=== PATIENT | male | born 2000 | race Caucasian/White ===

== ENCOUNTER 2023-07-04 13:10 | Inpatient (IN) ==
[2023-07-04] MEDS ORDERED: KETOROLAC TROMETHAMINE 15 MG/ML VIAL IV ONE (13:24)
--- NOTE | 2023-07-04 13:28 | ED Triage Note ---
Date of Service July 04, 2023 History of Present Illness This patient was briefly evaluated while in triage. An abbreviated physical exam was performed. This patient is a 23-year-old Male who presents to the ED for evaluation of chest/back pain. Patient states he was laying in bed this morning and developed a pain in his right mid back. He then started feeling a pinching pain in his chest with deep breath. He has little pain at rest. No recent long travel. Physical Exam VITALS: Vitals are noted on the nurse's note and reviewed by myself. GENERAL: This is a 23-year-old male, in no acute distress, well-developed well- nourished. HEART: Regular rate and rhythm without murmurs gallops or rubs. LUNGS: Clear to auscultation bilaterally without wheezes, rales or rhonchi. MUSCULOSKELETAL: No tenderness to palpation of the back. NEURO: Patient was alert and oriented to person place and time. Initial orders for labs and / or imaging were placed and patient was placed in the waiting area until a bed is available. Please see further documentation for the full ED course. MDM / Impression Impression Impression: Spontaneous pneumothorax
[2023-07-04 13:55] LABS: Basophils # (auto) 0.04 K/uL (0.00-0.20); Basophils % (auto) 0.7 %; Eosinophils # (auto) 0.11 K/uL (0.00-0.50); Eosinophils % (auto) 1.9 %; Hematocrit (blood only) 46.6 % (42.0-52.0); Hemoglobin 15.7 g/dl (14.0-18.0); Immature Granulocytes # (auto) 0.03 K/uL (0.01-0.20); Immature Granulocytes % (auto) 0.5 %; Lymphocytes # (auto) 1.85 K/uL (1.20-3.40); Lymphocytes % (auto) 31.7 %; Mean Corpuscular Hemoglobin 29.3 pg (25.0-34.0); Mean Corpuscular Hgb Conc 33.7 g/dL (32.0-36.0); Mean Corpuscular Volume 87.1 fL (80.0-100.0); Mean Platelet Volume 9.7 fL (9.4-12.4); Monocytes # (auto) 0.43 K/uL (0.11-0.59); Monocytes % (auto) 7.4 %; Neutrophils # (auto) 3.37 K/uL (1.40-6.50); Neutrophils % (auto) 57.8 %; Platelet Count 275 K/uL (130-400); RDW Coefficient of Variation 11.9 % (11.5-14.5); RDW Standard Deviation 37.8 fL (36.4-46.3); Red Blood Count 5.35 M/uL (4.70-6.10); White Blood Count 5.83 K/ul (4.8-10.8)
[2023-07-04 14:15] LABS: Alanine Aminotransferase 13 U/L (7-52); Albumin Globulin Ratio 1.5 (0.9-2); Albumin Level 4.7 gm/dl (3.4-5.0); Alkaline Phosphatase 66 U/L (34-104); Anion Gap 7 (3-11); Aspartate Aminotransferase 18 U/L (13-39); BUN Creatinine Ratio 13.2 (10-20); Bilirubin,Total 0.6 mg/dl (0.2-1.0); Blood Urea Nitrogen 14 mg/dl (6-23); Calcium 9.7 mg/dl (8.6-10.3); Carbon Dioxide 31 mmol/L (21-32); Chloride 103 mmol/L (98-107); Creatinine Clr Calc Pharmacy 123.5 ml/min; Est GFR (African American) 114.9 ml/min; Est GFR (Non-African American) 99.1 ml/min; Globulin 3.2 gm/dl (2.5-4.0); Glucose 94 mg/dl (70-99(Fasting)); Potassium 3.9 mmol/L (3.5-5.1); Sodium 141 mmol/L (136-145); Total Protein 7.9 gm/dl (6.0-8.3)
[2023-07-04 14:22] LABS: Troponin I High Sensitivity < 2.3 pg/ml (0-20)
--- NOTE | 2023-07-04 14:37 | XRay Report ---
XR chest 1V not portable HISTORY: Chest pain, nonspecific COMPARISON: Chest 06/30/2022. FINDINGS: [id number] right-sided pneumothorax demonstrating a maximal apical pleural gap of 4. 6 cm. No mediastinal shift. The heart is normal in size. No pleural effusions. No left-sided pneumoth orax. The lungs are clear. No acute fractures identified. IMPRESSION: Small to moderate right-sided pneumothorax. No mediastinal shift. ACT 112: Negative or not required by law. Electronically signed by: Singh Rubio M.D. 07/04/2023 2:35 PM
[2023-07-04] MEDS ORDERED: SODIUM CHLORIDE 0.9% 1,000 ML IV SCH (15:15)
[2023-07-04] MEDS ORDERED: OPTIRAY 320 100ml IV ONE (15:29)
--- NOTE | 2023-07-04 16:05 | CT Scan Report ---
CHEST CT WITH CONTRAST CT DOSE: 551.93 mGy.cm HISTORY: eval right-sided pneumothorax, ?nontrauma vs trauma TECHNIQUE: Multiaxial CT images of the chest were performed following the intravenous administration of contrast. A dose lowering technique was utilized adhering to the principles of ALARA. COMPARISON: Chest 07/04/2023. FINDINGS: There is again noted a small right pneumothorax. Small cluster right apical blebs medially with the largest on image 42 measuring 6 mm. This may account for the pneumothorax. Small patchy dens ities within the right lower lobe posteriorly favor dependent change/atelectasis. The left lung is cl ear. No mediastinal shift. The central airways are patent. No pneumomediastinum. No acute fractures i dentified. The thyroid gland enhances normally. Normal esophagus. No pericardial effusion. Trace righ t pleural effusion is suggested. No mediastinal or hilar lymphadenopathy. The heart is normal in size . Normal caliber thoracic aorta with no evidence for a dissection. The main pulmonary arteries are pa tent. Limited views of the upper abdomen demonstrate a normal liver, spleen, and adrenal glands. IMPRESSION: 1. Small right pneumothorax again noted. No mediastinal shift. 2. Small cluster of right apical blebs with the largest measuring 6 mm. This may account for the pneu mothorax. 3. Trace right pleural effusion. ACT 112: Negative or not required by law. Electronically signed by: Singh Rubio M.D. 07/04/2023 4:04 PM
[2023-07-04] MEDS ORDERED: XYLOCAINE 1%/SOD BICARB 20 ML VIAL INFIL ONE (16:49)
--- NOTE | 2023-07-04 17:14 | Electrocardiogram Report ---
Test Reason : Blood Pressure : / mmHG Vent. Rate : 064 BPM Atrial Rate : 064 BPM P-R Int : 126 ms QRS Dur : 092 ms QT Int : 378 ms P-R-T Axes : 065 076 071 degrees QTc Int : 389 ms Sinus rhythm with marked sinus arrhythmia Otherwise normal ECG When compared with ECG of 30-JUN-2022 05:06, No significant change was found Confirmed by Ildefonso Diaz ([id number]) on 07/04/2023 5:13:49 PM Referred By: Confirmed By:Donny Diaz
[2023-07-04] MEDS ORDERED: MoRPHine SULFATE 4 MG/ML 1 ML CARP\\VIAL ONE (17:18)
[2023-07-04] MEDS ORDERED: MoRPHine SULFATE 2 MG/ML CARP IV STA (17:19)
[2023-07-04] MEDS ORDERED: MoRPHine SULFATE 4 MG/ML 1 ML CARP\\VIAL IV STA (17:36)
[2023-07-04] MEDS ORDERED: ONDANSETRON INJ 2 MG/ML 2 ML VIAL IV STA (17:36)
--- NOTE | 2023-07-04 17:49 | Emergency Department Note ---
Impression & Plan Spontaneous pneumothorax, Vapes nicotine containing substance, Chest pain ED Provider Note NAME: JAYDEN JULIO AGE: 23 SEX: M ARRIVES VIA: Walk-In INFORMANT: Patient ED PROVIDER(S): Fernando Alvarez MD CHIEF COMPLAINT: Chest pain PLAN: Disposition: Admit MEDICAL DECISION MAKING: The patient is a pleasant 23-year-old gentleman, [employer] student who presents to the emergency department for evaluation of worsening right-sided chest pain and shortness of breath which became severe this morning but he acknowledges has been ongoing to the degree since Monday. The patient reports that he did have a festive weekend of drinking alcohol and admits that he did smoke marijuana and vapes regularly. He reports he is unaware of any episodes where he may have fallen or any reports of any falls or trauma provided to him by his friends but he acknowledges there is a bit of gap in time in terms of his memory due to his intoxication that day. He reports his symptoms were minimal on Monday and Monday during the day and progressed Monday evening and then more severe this morning. Otherwise denies any recent fevers, chills, cough, congestion, GI or symptoms. He denies any chronic medical conditions. Of note, the patient did arrive to emergency department during time of high volume, acuity and prolonged emergency department waiting times. Critical pathways initiated from triage. Chest x-ray performed in triage demonstrates moderate-sized right pneumothorax w ith 4.4 cm of separation apically per my personal review/interpretation. The patient was subsequently transferred to critical care bay for further assessment. On my evaluation the patient is well-appearing in no acute distress, afebrile with stable vital signs with heart rate in the 50-60s and with blood pressure normal and O2 saturation 98% on room air and greater. He has diminished breath sounds of the right upper lung link and lungs are otherwise clear. WBC, H/H and platelets within normal limits. Chemistry without metabolic acidosis. Electrolytes and LFTs without significant abnormality. High- sensitivity troponin is undetectable. Given the patient reported a gap in his memory from the weekend a CT of the chest was performed to exclude traumatic etiology given the patient was hemodynamically stable and doing well on room air. He was placed on high percent nonrebreather in the interim. CT scan redemonstrates pneumothorax with trace pleural effusion. Note is made of susp ected apical blebs. No rib fractures are seen. There appears to be approximate 2 cm of separation from the pleural wall though in the setting of the patient being supine and so do not suspect any significant difference. Case was discussed with ICU press washer, Dr. Babb. Appreciate consultatio n/recommendations. Agrees with placement of catheter given size of pneumothorax. Given anterior apical location may be effectively managed with a ThoraVent. I did have a thorough discussion with the patient and his mother regarding management of his pneumothorax upon the patient's arrival. Ultimately, the patient was in agreement with plan for catheter thoracostomy. ThoraVent catheter placed per procedure note. 50 cc of air removed initially and placed to waterseal. Subsequent repeat chest x-ray demonstrates interval improvement with 3.7cm of apical separation. Patient subsequently placed to low continuous suction while in the emergency department but can be transition to waterseal upon transfer to the floor. Case was discussed with Dr. Grijalva, [facility] hospitalist, who will evaluate the patient for admission. Triage Nursing notes reviewed and agree them. Prior/external medical records reviewed Vital Signs: reviewed Differential diagnosis: Pneumothorax, Reactive airway disease, pneumonia, pneumothorax, COPD, CHF, infections, cardiac ischemia, pulmonary embolism, musculoskeletal, gastrointestinal, as well as other pathologies. ER treatment provided: See below. Diagnostics interpreted by me: ECG: Sinus rhythm with marked sinus arrhythmia, 64 bpm, no ectopy, no overt ST elevation or depression, QTc 389, QRS 92. Similar to 06/2022 Cardiac Monitoring: An order for continuous cardiac monitoring was placed and demonstrated Sinus rhythm with marked sinus arrhythmia, 64 bpm, no ectopy. Laboratory studies: See below Imaging studies: See below Consultation(s): Dr. Babb, ICU press washer. HPI: The patient is a pleasant 23-year-old gentleman, [employer] student who presents to the emergency department for evaluation of worsening right-sided chest pain and shortness of breath which became severe this morning but he acknowledges has been ongoing to the degree since Monday. The patient reports that he did have a festive weekend of drinking alcohol and admits that he did smoke marijuana and vapes regularly. He reports he is unaware of any episodes where he may have fallen or any reports of any falls or trauma provided to him by his friends but he acknowledges there is a bit of gap in time in terms of his memory due to his intoxication that day. He reports his symptoms were minimal on Monday and Monday during the day and progressed Monday evening and then more severe this morning. Otherwise denies any recent fevers, chills, cough, congestion, GI or symptoms. He denies any chronic medical conditions. ROS: See above HPI for pertinent positives & negatives. A total of 10 systems reviewed and were otherwise negative. VITALS:See Below PHYSICAL EXAMINATION: GENERAL: Awake, alert, well-appearing, in no distress HENT: Normocephalic, atraumatic. Oropharynx unremarkable. EYES: Normal conjunctiva. Sclera non-icteric. NECK: Supple. No nuchal rigidity. FROM. No JVD. RESPIRATORY: Diminished breath sounds of the right upper lung link and lungs are otherwise clear. CARDIAC: Regular rate, normal rhythm. Extremities warm and well perfused. Pulses equal. ABDOMEN: Soft, non-distended. No tenderness to palpation. No rebound or guarding. No masses. RECTAL: Deferred. MUSCULOSKELETAL: Chest examination reveals no tenderness. The back is symmetrical on inspection without obvious abnormality. There is no CVA te nderness to palpation. No joint edema. LOWER EXTREMITIES: Calves are equal size bilaterally and non-tender. No edema. No discoloration. NEURO: Normal sensorium. No sensory or motor deficits noted. SKIN: No rash or jaundice noted. ED COURSE: Procedures: Tube thoracostomy (ThoraVent) Indication: Pneumothorax Catheter type: ThoraVent Location: Right mid-clavicular line, 2nd intercostal space. Medications, Imaging and lab results reviewed. Written consent was obtained after the risks and benefits were explained. At t his time, the risks of the procedure are less than the risks of NOT performing the procedure. The patient was placed in the seated position with slight left lateral decubitus orientation and the skin was prepped in the standard fashion with chlorhexidine and sterile drapes applied. The proper landmarks were identified with ultrasound, anesthetized with 1% lidocaine without epinephrine, and the needle was inserted through the skin in the standard fashion with contact on rib surface then over rib into intercostal space. The needle was carefully advanced and air return confirmed in syringe. The guidewire was placed uneventfully. Tract was dilated in standard fashion and pigtail catheter advance d with air return confirming appropriate position. It was sutured into position. Initially placed to low wall suction which the patient tolerated well. The patient tolerated the procedure well and there were no complications. Post procedure x-ray demonstrated lung reexpansion. Critical Care: I have personally spent greater than 35 minutes of critical care time in the direct management of this patient. This includes bedside care, interpretation of diagnostic studies, and testing, discussion with consultants, patient, and family members, and other required patient management activities. This 35 minutes is in excess of all separately billable procedures. Fernando Alvarez MD Past Med/Surg History Medical History (Updated 07/05/23 @ 00:35 by Fernando Alvarez MD) No chronic diseases present Splenic infarction 10/06 mononucleosis Surgical History No significant past surgical history Social History Smoking Status: Current some day smoker Tobacco Type: Cigarettes and E-cigarettes / Vaping Cigarettes Per Day: 2; Do You Dip or Chew Tobacco: No; Tobacco Cessation Education Requested by Patient: No Hx Alcohol Use: Yes Alcohol type: beer Hx Substance Use: Yes Last Used Substance: Days (ago) Last Used Substance Other:: 07/02 Preferred Language: Tajik Communication Ability: Effective Operations Lieutenant Required: No Beliefs That Will Affect Care: None Current Living Situation: Other Current Living Situation Comment: Off campus housing with other college students Other Information That Helps Us Care for You: No Feels Safe at Home: Yes Safety Concerns: Feels Safe At This Time Assistive Devices: None Allergies Allergies Allergy/AdvReac Type Severity Reaction Status Date / Time No Known Allergies Allergy Verified 07/04/23 15:52 Home Meds Home Medications Medication Instructions Recorded Confirmed acetaminophen 500 mg tablet 1,000 mg PO DIRECTED PRN 07/04/23 07/04/23 (Tylenol Extra Strength) PAIN/FEVER Results & Data (ED) Vital Signs Vital Signs - 24 hr 07/04/23 13:23 07/04/23 14:40 07/04/23 15:36 Temperature 36.8 C Temperature Source Skin Pulse Rate 86 Pulse Rate [Apical] 59 L Pulse Rate from SpO2 Sensor Pulse Rhythm [Apical] Respiratory Rate 18 16 Respiratory Depth Blood Pressure 124/76 Blood Pressure [Left Arm] 102/52 L Blood Pressure Mean 92 Blood Pressure Mean [Left Arm] 68 Blood Pressure Position [Left Arm] Lying Pulse Oximetry 97 100 99 Oxygen Delivery Method Room Air Room Air Room Air Oxygen Flow Rate Sepsis Recent Fever Within 48 Hours No Sepsis New/Unexplained Change in Mental Status No Sepsis Action Taken by Nursing No Action Required 07/04/23 16:04 07/04/23 16:05 07/04/23 16:30 Temperature Temperature Source Pulse Rate Pulse Rate [Apical] 48 L 46 L Pulse Rate from SpO2 Sensor Pulse Rhythm [Apical] Regular Respiratory Rate 16 15 Respiratory Depth Normal Blood Pressure Blood Pressure [Left Arm] 115/64 117/64 Blood Pressure Mean Blood Pressure Mean [Left Arm] 81 81 Blood Pressure Position [Left Arm] Lying Pulse Oximetry 100 100 99 Oxygen Delivery Method Non-rebreather Non-rebreather Non-rebreather Oxygen Flow Rate 15 15 15 Sepsis Recent Fever Within 48 Hours Sepsis New/Unexplained Change in Mental Status Sepsis Action Taken by Nursing 07/04/23 17:00 07/04/23 17:26 07/04/23 18:01 Temperature Temperature Source Pulse Rate 51 L 46 L Pulse Rate [Apical] 49 L Pulse Rate from SpO2 Sensor 45 L Pulse Rhythm [Apical] Regular Respiratory Rate 20 16 Respiratory Depth Normal Blood Pressure 128/60 Blood Pressure [Left Arm] 116/67 Blood Pressure Mean 82 Blood Pressure Mean [Left Arm] 83 Blood Pressure Position [Left Arm] Lying Pulse Oximetry 100 98 Oxygen Delivery Method Non-rebreather Nasal Cannula Oxygen Flow Rate 15 2.5 Sepsis Recent Fever Within 48 Hours Sepsis New/Unexplained Change in Mental Status Sepsis Action Taken by Nursing 07/04/23 18:01 Temperature Temperature Source Pulse Rate Pulse Rate [Apical] Pulse Rate from SpO2 Sensor Pulse Rhythm [Apical] Respiratory Rate Respiratory Depth Blood Pressure 128/60 Blood Pressure [Left Arm] Blood Pressure Mean 90 Blood Pressure Mean [Left Arm] Blood Pressure Position [Left Arm] Pulse Oximetry Oxygen Delivery Method Oxygen Flow Rate Sepsis Recent Fever Within 48 Hours Sepsis New/Unexplained Change in Mental Status Sepsis Action Taken by Nursing Laboratory Data Attestation: I reviewed the patient's lab results. 07/04/23 13:34 07/04/23 13:34 Lab Results 07/04/23 07/04/23 Range/Units 13:34 13:34 WBC 5.83 (4.8-10.8) K/ul RBC 5.35 (4.70-6.10) M/uL Hgb 15.7 (14.0-18.0) g/dl Hct 46.6 (42.0-52.0) % MCV 87.1 (80.0-100.0) fL MCH 29.3 (25.0-34.0) pg MCHC 33.7 (32.0-36.0) g/dL RDW Std Deviation 37.8 (36.4-46.3) fL RDW Coeff of Anisa 11.9 (11.5-14.5) % Plt Count 275 (130-400) K/uL MPV 9.7 (9.4-12.4) fL Immature Gran % (Auto) 0.5 % Neut % (Auto) 57.8 % Lymph % (Auto) 31.7 % [place] % (Auto) 7.4 % Eos % (Auto) 1.9 % Baso % (Auto) 0.7 % Neut # (Auto) 3.37 (1.40-6.50) K/uL Lymph # (Auto) 1.85 (1.20-3.40) K/uL [place] # (Auto) 0.43 (0.11-0.59) K/uL Eos # (Auto) 0.11 (0.00-0.50) K/uL Baso # (Auto) 0.04 (0.00-0.20) K/uL Immature Gran # (Auto) 0.03 (0.01-0.20) K/uL Sodium 141 (136-145) mmol/L Potassium 3.9 (3.5-5.1) mmol/L Chloride 103 (98-107) mmol/L Carbon Dioxide 31 (21-32) mmol/L Anion Gap 7 (3-11) BUN 14 (6-23) mg/dl Creatinine 1.06 (0.6-1.4) mg/dl Est Cr Clr Drug Dosing 123.5 ml/min Est GFR ( Amer) 114.9 ml/min Est GFR (Non-Af Amer) 99.1 ml/min BUN/Creatinine Ratio 13.2 (10-20) Glucose 94 (70-99(Fasting)) mg/dl Calcium 9.7 (8.6-10.3) mg/dl Total Bilirubin 0.6 (0.2-1.0) mg/dl AST 18 (13-39) U/L ALT 13 (7-52) U/L Alkaline Phosphatase 66 (34-104) U/L Troponin I High Sens < 2.3 (0-20) pg/ml Total Protein 7.9 (6.0-8.3) gm/dl Albumin 4.7 (3.4-5.0) gm/dl Globulin 3.2 (2.5-4.0) gm/dl Albumin/Globulin Ratio 1.5 (0.9-2) Administered Medications Acetaminophen (Acetaminophen 325 Mg Tab) 650 mg PO Q4H PRN PRN Reason: Pain or Fever Stop: 08/03/23 20:50 Last Admin: 07/04/23 21:25 Dose: 650 mg Documented By: MAIDA Ketorolac Tromethamine (Ketorolac Tromethamine 15 Mg/Ml Vial) 10 mg IV Q6H PRN PRN Reason: Pain Stop: 07/09/23 19:29 Last Admin: 07/04/23 21:23 Dose: 10 mg Documented By: MAIDA Discontinued Medications Sodium Chloride (Nss) 1,000 mls @ 125 mls/hr IV .Q8H BENITA Stop: 08/03/23 15:14 Last Infusion: 07/04/23 21:41 Dose: 0 mls/hr Documented By: Admin: 07/04/23 15:38 Dose: 125 mls/hr Documented By: YRAA Ioversol (Optiray 320 100ml) 93 ml IV ONCE ONE Stop: 07/04/23 15:30 Last Admin: 07/04/23 15:29 Dose: 93 ml Documented By: CARMEN Ketorolac Tromethamine (Ketorolac Tromethamine 15 Mg/Ml Vial) 10 mg IV NOW ONE Stop: 07/04/23 13:25 Last Admin: 07/04/23 14:43 Dose: 10 mg Documented By: YARA Lidocaine HCl (Xylocaine 1%/Sod Bicarb 20 Ml Vial) Confirm Administered Dose 25 ml INFIL .STK-MED ONE Stop: 07/04/23 16:50 Last Admin: 07/04/23 19:28 Dose: Not Given Documented By: OMKAR Morphine Sulfate (Morphine Sulfate 4 Mg/Ml 1 Ml Carp\Vial) Confirm Administered Dose 4 mg .ROUTE .STK-MED ONE Stop: 07/04/23 17:19 Last Admin: 07/04/23 17:44 Dose: Not Given Documented By: YARA Morphine Sulfate (Morphine Sulfate 2 Mg/Ml Carp) 2 mg IV NOW STA Stop: 07/04/23 17:20 Last Admin: 07/04/23 17:21 Dose: 2 mg Documented By: YARA Morphine Sulfate (Morphine Sulfate 4 Mg/Ml 1 Ml Carp\Vial) 4 mg IV NOW STA Stop: 07/04/23 17:37 Last Admin: 07/04/23 17:45 Dose: 4 mg Documented By: YARA Ondansetron HCl (Ondansetron Inj 2 Mg/Ml 2 Ml Vial) 4 mg IV NOW STA Stop: 07/04/23 17:37 Last Admin: 07/04/23 17:45 Dose: 4 mg Documented By: YARA Imaging Data Radiologist's Impression: Chest X-Ray 07/04/23 13:24 XR chest 1V not portable HISTORY: Chest pain, nonspecific COMPARISON: Chest 06/30/2022. FINDINGS: [id number] right-sided pneumothorax demonstrating a maximal apical pleural gap of 4.6 cm. No mediastinal shift. The heart is normal in size. No pleural effusions. No left-sided pneumothorax. The lungs are clear. No acute fractures identified. IMPRESSION: Small to moderate right-sided pneumothorax. No mediastinal shift. ACT 112: Negative or not required by law. Electronically signed by: Singh Rubio M.D. 07/04/2023 2:[address] 07/04/23 15:[address] WITH CONTRAST CT DOSE: 551.93 mGy.cm HISTORY: eval right-sided pneumothorax, ?nontrauma vs trauma TECHNIQUE: Multiaxial CT images of the chest were performed following the intr avenous administration of contrast. A dose lowering technique was utilized adhering to the principles of ALARA. COMPARISON: Chest 07/04/2023. FINDINGS: There is again noted a small right pneumothorax. Small cluster right apical blebs medially with the largest on image 42 measuring 6 mm. This may account for the pneumothorax. Small patchy densities within the right lower lobe posteriorly favor dependent change/atelectasis. The left lung is clear. No mediastinal shift. The central airways are patent. No pneumomediastinum. No acute fractures identified. The thyroid gland enhances normally. Normal esophagus. No pericardial effusion. Trace right pleural effusion is suggested. No mediastinal or hilar lymphadenopathy. The heart is normal in size. Normal caliber thoracic aorta with no evidence for a dissection. The main pulmonary arteries are patent. Limited views of the upper abdomen demonstrate a normal liver, spleen, and adrenal glands. IMPRESSION: 1. Small right pneumothorax again noted. No mediastinal shift. 2. Small cluster of right apical blebs with the largest measuring 6 mm. This may account for the pneumothorax. 3. Trace right pleural effusion. ACT 112: Negative or not required by law. Electronically signed by: Singh Rubio M.D. 07/04/2023 4:04 PM Chest X-Ray 07/04/23 17:36 SINGLE VIEW CHEST CLINICAL HISTORY: Pleural catheter placement. Pneumothorax FINDINGS: An AP, portable, upright chest radiograph is compared to chest x-ray and chest CT dated 07/04/2023. The cardiomediastinal silhouette is unremarkable. A chest tube has been placed and projects over the right apex. There is a persistent small to moderate right apical pneumothorax with at least 3.7 cm of apical pleural separation. There is no airspace consolidation or pleural effusion. No pneumothorax is seen on the left. The bony thorax is grossly intact. IMPRESSION: 1. A right-sided chest tube has been placed. A small to moderate right apical pneumothorax persists. 2. No airspace consolidation or pleural effusion is identified. ACT 112: Negative or not required by law. Electronically signed by: Chivo Maldonado M.D. 07/04/2023 5:48 PM Discharge Plan Visit Data Chief Complaint: Chest Pain Stated Complaint: CHEST PAIN, SOB, FLANK PAIN ED Provider: Fernando Alvarez Discharge Problem: Spontaneous pneumothorax, Vapes nicotine containing substance, Chest pain Patient Disposition: Admitted As Inpatient Discharge Instructions Interventions: ED Discharge Assessment Last Done: 07/04/23 20:52
--- NOTE | 2023-07-04 18:08 | History & Physical Report ---
Date of Service July 04, 2023 Assessment & Plan (1) Spontaneous pneumothorax: Plan: Right-sided pneumothorax CXR initially noted small to right-sided pneumothorax, CT redemonstrated small right pneumothorax without mediastinal shift and apical blebs at the right lung. Trace right pleural effusion. Repeat chest x-ray after NRB/O2 with persistent small to moderate right apical pneumothorax Chest tube placed while in ER Multimodal pain control. Tylenol, Toradol, breakthrough hydromorphone as needed s/p thoravent --> waterseal. Morning chest x-ray ordered SPO2 titrate to greater than 94% Patient symptomatically improved. - Pulm consulted (2) No chronic diseases present: (3) Vapes nicotine containing substance: Plan: Vape use several times daily several times a week Cessation recommended Plan DVT prophylaxis: Low risk, SCDs Diet: Regular Disposition: PCU CODE STATUS: Full code History of Present Illness Primary Care Provider: Robe Wu MD Jaskaran is a 23-year-old male who presents with right-sided chest pain and shortness of breath which began 2 days ago but has been progressively worsening over the last 24 hours. No trauma. Patient was celebrating halloween over the weekend and was intoxicated with some blackouts/memory loss. While in ER patient was found to have a moderate right-sided pneumothorax of 4.4 cm of separation apically, was placed on nonrebreather and CT was not ordered to evaluate for potential trauma. Suspect PSP from apical bleb rupture. Jaskaran seen at the bedside. He reports that he has never had a pneumothorax before. He reports he was out this weekend for Hallow, did have multiple alcoholic drinks and does not remember some of Monday night but was with friends the entire time and did not have any fall/trauma to his knowledge and per friends that he reached out to that were with him the entire time. He reports he did develop shortness of breath Monday, which has been much worse in the last 24 hours. He reports he had a pain like sensation in the top right of his chest. He did not notice ascending tearing sensation in any point. He currently feels improved and is not short of breath, but has some mild ache at site of his chest tube. He denies lightheadedness, dizziness. He uses a vape several times daily. Vapes nicotine. He has vaped several times daily several times a week for around 3 years. Nicotine/vape cessation recommended. He reports he does not use tobacco products He reports he does use recreational marijuana intermittently, smoked. Does not use any vaped formulation of marijuana/THC Does have a history of mono with a splenic infarct which did not require any surgical intervention. Otherwise denies medical and surgical history. He does not take any chronic medications. He has no known drug allergies. Full code. 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 He does not wish for any family to be contacted, reports that he has updated family himself. 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 NAD. Cooperative. HEENT: Atraumatic, normocephalic. Vision/hearing intact. Pulm: Right thoravent present, on waterseal, no air leak. CTAB A&P. -wheezes, - rales, -rhonchi. Symmetrical chest rise. No increased work of breathing. No respiratory distress. Cardiac: RRR, -mrg. Radial pulses intact and symmetrical. Abdominal: Nontender, nondistended, soft. BS present. Results & Data Results & Data Vital Signs (Past 12 Hours) Vital Signs Temp Pulse Pulse Resp BP BP Pulse Ox 07/04/23 17:26 51 L 07/04/23 17:00 49 L 20 116/67 100 07/04/23 16:30 46 L 15 117/64 99 07/04/23 16:05 100 07/04/23 16:04 48 L 16 115/64 100 07/04/23 15:36 59 L 16 102/52 L 99 07/04/23 14:40 100 07/04/23 13:23 36.8 C 86 18 124/76 97 O2 Del Method O2 Flow Rate 07/04/23 17:26 07/04/23 17:00 Non-rebreather 15 07/04/23 16:30 Non-rebreather 15 07/04/23 16:05 Non-rebreather 15 07/04/23 16:04 Non-rebreather 15 07/04/23 15:36 Room Air 07/04/23 14:40 Room Air 07/04/23 13:23 Room Air PG Care Time/CCT Total # of Minutes Spent Total Time Spent with Patient: Total time spent is greater than 50% in coordination of care (as documented) at patient's floor/unit and/or counseling patient: Coding Level of Care Code 91717 INT INP/OBS CARE 3/75MIN Diagnoses Spontaneous pneumothorax J93.83 No chronic diseases present Vapes nicotine containing substance Z72.0
[2023-07-04] MEDS ORDERED: HYDROmorphone INJ 0.5 MG/0.5 ML SYR IV PRN (18:13)
[2023-07-04] MEDS ORDERED: ACETAMINOPHEN 325 MG TAB PO PRN (20:51)
[2023-07-04] MEDS: KETOROLAC TROMETHAMINE 15 MG/ML VIAL IV PRN (21:23)
[2023-07-05 07:11] LABS: Basophils # (auto) 0.04 K/uL (0.00-0.20); Basophils % (auto) 0.6 %; Eosinophils # (auto) 0.13 K/uL (0.00-0.50); Eosinophils % (auto) 1.8 %; Hematocrit (blood only) 38.8 % (42.0-52.0); Hemoglobin 13.2 g/dl (14.0-18.0); Immature Granulocytes # (auto) 0.03 K/uL (0.01-0.20); Immature Granulocytes % (auto) 0.4 %; Lymphocytes # (auto) 2.38 K/uL (1.20-3.40); Lymphocytes % (auto) 33.2 %; Mean Corpuscular Hemoglobin 29.1 pg (25.0-34.0); Mean Corpuscular Volume 85.5 fL (80.0-100.0); Mean Platelet Volume 10.1 fL (9.4-12.4); Monocytes # (auto) 0.58 K/uL (0.11-0.59); Monocytes % (auto) 8.1 %; Neutrophils % (auto) 55.9 %; Platelet Count 244 K/uL (130-400); RDW Standard Deviation 37.2 fL (36.4-46.3); Red Blood Count 4.54 M/uL (4.70-6.10); White Blood Count 7.16 K/ul (4.8-10.8)
--- NOTE | 2023-07-05 07:17 | XRay Report ---
XR chest 1V portable CLINICAL HISTORY: Pneumothorax. COMPARISON STUDY: Chest CT and chest radiograph July 04, 2023. FINDINGS: Right apical pleural catheter remains in place. The right pneumothorax has significantly de creased in size. There is a trace right apical pneumothorax with pleural separation of 4 mm. There is no left pneumothorax. There is no consolidation. Vascularity is normal. Cardiomediastinal silhouette is unremarkable. IMPRESSION: Trace right apical pneumothorax, significantly decreased in size since prior exam. Right apical pleural catheter in place. ACT 112: Negative or not required by law. Electronically signed by: Dylan Hernandez M.D. 07/05/2023 7:16 AM
--- NOTE | 2023-07-05 07:23 | Hospitalist Progress Note ---
Date of Service July 05, 2023 Assessment & Plan (1) Spontaneous pneumothorax: (2) Vapes nicotine containing substance: Plan Spontaneous pneumothorax: Plan: Right-sided pneumothorax CXR initially noted small to right-sided pneumothorax, CT redemonstrated small right pneumothorax without mediastinal shift and apical blebs at the right lung. Trace right pleural effusion. Repeat chest x-ray after NRB/O2 with persistent small to moderate right apical pneumothorax Chest tube placed while in ER Multimodal pain control. Tylenol, Toradol, breakthrough hydromorphone as needed s/p thoravent --> waterseal. Morning chest x-ray ordered SPO2 titrate to greater than 94% Patient symptomatically improved. - Pulm consulted (2) No chronic diseases present: (3) Vapes nicotine containing substance: Plan: Vape use several times daily several times a week Cessation recommended Admission and Anticipated Discharge Date Admission Date: July 04, 2023 Subjective Pt is a [] yo [] with a past medical history of [] who presents to the hospital on [] for []. Review of Systems Review of Systems: Constitutional: denies fever, chills, [] HEENT: denies congestion, sore throat Cardio: denies chest pain, palpitations Resp: denies shortness of breath, cough GI: denies abdominal pain, nausea, vomiting, constipation, diarrhea : denies pain with urination, change in urinary frequency Neuro: denies new numbness, tingling, weakness Physical Exam Physical Exam: General:Alert and oriented, no acute distress, [] HEENT: Normocephalic, moist oral mucosa, Cardio: Regular rate and rhythm, no murmur, Resp:Lungs clear to auscultation b/l, no wheezes or rhonchi, GI: Soft and nontender, nondistended, bowel sounds active Skin: Warm, pink, dry, Psych: Mood-affect congruence. Results & Data Results & Data Vital Signs (Past 12 Hours) Vital Signs Temp Pulse Pulse Resp BP Pulse Ox Pulse Ox 07/05/23 03:17 36.7 C 46 L 17 123/68 98 07/04/23 22:01 54 L 07/04/23 23:00 36.3 C L 44 L 16 121/75 99 07/04/23 21:00 07/04/23 20:49 49 L 07/04/23 20:51 36.5 C 45 L 18 121/74 100 07/04/23 20:51 100 07/04/23 20:58 36.5 C 45 L 18 121/74 100 07/04/23 20:06 49 L 17 111/63 96 O2 Del Method O2 Del Method 07/05/23 03:17 Room Air 07/04/23 22:01 07/04/23 23:00 Room Air 07/04/23 21:00 Room Air 07/04/23 20:49 07/04/23 20:51 Room Air 07/04/23 20:51 Room Air 07/04/23 20:58 Room Air 07/04/23 20:06 Room Air
[2023-07-05 07:29] LABS: BUN Creatinine Ratio 12.6 (10-20); Calcium 9.1 mg/dl (8.6-10.3); Creatinine Clr Calc Pharmacy 119.7 ml/min; Est GFR (African American) 108.7 ml/min; Est GFR (Non-African American) 93.8 ml/min; Potassium 3.9 mmol/L (3.5-5.1)
[2023-07-05] MEDS: KETOROLAC TROMETHAMINE 15 MG/ML VIAL IV PRN (07:54)
--- NOTE | 2023-07-05 09:53 | Pulmonary Consultation ---
Date of Consultation July 05, 2023 Assessment & Plan (1) Spontaneous pneumothorax: But his pneumothorax appears to be improving with Thora vent in place. I capped the Thora vent and we will repeat a chest x-ray in the next 2 to 3 hours. If this is stable or improved, we will remove the Thora vent and the patient can be discharged. Patient encouraged to avoid cigarette smoking, vaping and marijuana use as this could predispose him to further pneumothorax. There was a mention of small blebs the right apex which to me appears to be very tiny and fairly insignificant. Consideration for follow-up with outpatient CT in the next 8 to 10 weeks. Avoid lifting over 5 pounds for the next 6 weeks, avoid changes in barometric pressure including snorkeling, scuba diving and flying on an airplane for neck 6 weeks. (2) Vapes nicotine containing substance: Complete cessation encouraged. (3) Marijuana use: Complete cessation encouraged. (4) Tobacco abuse counseling: Complete cessation encouraged. Plan Thank you for allowing me to participate the care of the patient. We will continue to follow with you. History of Present Illness Reason for Consultation: Spontaneous pneumothorax Attending Physician: Ildefonso Goel MD History of Present Illness 23-year-old male with sudden onset shortness of breath yesterday presenting to the ER and found to have a spontaneous right-sided pneumothorax. CT chest was completed which I personally reviewed. Radiology is noting a small collection of blebs in the apex. These findings look fairly insignificant to me. Patient denies any history of asthma or prior pneumothorax. He does note daily vaping, occasional marijuana use and occasional tobacco cigarette smoking. He notes that he is active and exercises regularly. He is a [employer] student. He denies any recent respiratory illness. He does not normally take any medications. He had a right-sided Thora vent placed in the second intercostal space yesterday with improvement of his pneumothorax. Today he has a residual 4 mm pleural separation at the apex on chest x-ray. He was placed to waterseal overnight. No significant fluid drainage was encountered. CBC and CMP are fairly unremarkable. Allergies Allergy/AdvReac Type Severity Reaction Status Date / Time No Known Allergies Allergy Verified 07/04/23 15:52 Home Medications Medication Instructions Recorded Confirmed Type acetaminophen 500 mg tablet 1,000 mg PO DIRECTED PRN 07/04/23 07/04/23 Hi story (Tylenol Extra Strength) PAIN/FEVER Patient History Medical History (Updated 07/05/23 @ 09:51 by Lalo Jennings MD) Marijuana use No chronic diseases present Splenic infarction 10/06 mononucleosis Tobacco abuse counseling Surgical History No significant past surgical history Social History Smoking Status: Current some day smoker Tobacco Type: Cigarettes and E-cigarettes / Vaping Cigarettes Per Day: 2; Do You Dip or Chew Tobacco: No; Tobacco Cessation Education Requested by Patient: No Hx Alcohol Use: Yes Alcohol type: beer Hx Substance Use: Yes Last Used Substance: Days (ago) Last Used Substance Other:: 07/02 Preferred Language: Vietnamese Communication Ability: Effective [employer] Field Service Technician Required: No Beliefs That Will Affect Care: None Current Living Situation: Other Current Living Situation Comment: Off campus housing with other college students Other Information That Helps Us Care for You: No Feels Safe at Home: Yes Safety Concerns: Feels Safe At This Time Assistive Devices: None Review of Systems Review of Systems: All systems reviewed & are unremarkable except as noted in HPI & below Physical Exam Physical Exam: Constitutional: Patient appears to be of their stated age. Patient is in no apparent distress. Patient is well-developed. Eyes: Pupils are equal round and reactive to light. Conjunctivae are normal. Anicteric sclera. Ears nose, mouth and throat: Deferred. Neck: Trachea is midline. Visual inspection is normal. Respiratory: Clear to auscultation bilaterally. No use of accessory muscles. No significant clubbing noted. Cardiovascular: Regular rate and rhythm. No murmurs. No edema. Gastrointestinal: Normal bowel sounds, soft, nontender and nondistended. No hepatosplenomegaly noted. Musculoskeletal: 5 out of 5 strength in all extremities. Soreness around the Thora vent site. Thora vent chest tube intact. No bleeding. Skin: No rashes, warm dry and intact. Neurologic: No obvious focal neurological deficits seen. Psychiatric: Alert and oriented x3 with a euthymic affect. Results & Data Results & Data Vital Signs (Past 12 Hours) Vital Signs Temp Pulse Pulse Resp BP Pulse Ox O2 Del Method 07/05/23 08:06 36.6 C 53 L 18 128/79 97 Room Air 11/01/23 03:17 36.7 C 46 L 17 123/68 98 Room Air 07/04/23 22:01 54 L 07/04/23 23:00 36.3 C L 44 L 16 121/75 99 Room Air PG Care Time/CCT Total # of Minutes Spent Total Time Spent with Patient: Total time spent is greater than 50% in coordination of care (as documented) at patient's floor/unit and/or counseling patient: Coding Level of Care Code 48727 INT INP/OBS CARE 2/55MIN Diagnoses Spontaneous pneumothorax J93.83 Vapes nicotine containing substance Z72.0 Marijuana use F12.90 Tobacco abuse counseling Z71.6
--- NOTE | 2023-07-05 14:57 | XRay Report ---
SINGLE VIEW CHEST CLINICAL HISTORY: Follow-up pneumothorax. FINDINGS: 2 AP, portable, upright chest radiographs are compared to study performed earlier the same day 07/05/2023. The cardiomediastinal silhouette is unremarkable. A chest tube is again seen in the ri t upper lung. There is a trace residual right apical pneumothorax with approximately 4 mm of pleura l separation. The lungs and pleural spaces are otherwise clear. No pneumothorax is seen on the left. The bony thorax is grossly intact. IMPRESSION: A right-sided chest tube is unchanged in position and there is trace residual right apica l pneumothorax. This is similar to today's earlier examination. ACT 112: Negative or not required by law. Electronically signed by: Chivo Maldonado M.D. 07/05/2023 2:56 PM
--- NOTE | 2023-07-05 15:15 | Discharge Summary ---
Date of Service July 05, 2023 Admission HPI Per Admitting Provider Jaskaran is a 23-year-old male who presents with right-sided chest pain and shortness of breath which began 2 days ago but has been progressively worsening over the last 24 hours. No trauma. Patient was celebrating halloween over the weekend and was intoxicated with some blackouts/memory loss. While in ER patient was found to have a moderate right-sided pneumothorax of 4.4 cm of separation apically, was placed on nonrebreather and CT was not ordered to evaluate for potential trauma. Suspect PSP from apical bleb rupture. Jaskaran seen at the bedside. He reports that he has never had a pneumothorax before. He reports he was out this weekend for , did have multiple alcoholic drinks and does not remember some of Monday night but was with friends the entire time and did not have any fall/trauma to his knowledge and per friends that he reached out to that were with him the entire time. He reports he did develop shortness of breath Monday, which has been much worse in the last 24 hours. He reports he had a pain like sensation in the top right of his chest. He did not notice ascending tearing sensation in any point. He currently feels improved and is not short of breath, but has some mild ache at site of his chest tube. He denies lightheadedness, dizziness. He uses a vape several times daily. Vapes nicotine. He has vaped several times daily several times a week for around 3 years. Nicotine/vape cessation recommended. He reports he does not use tobacco products He reports he does use recreational marijuana intermittently, smoked. Does not use any vaped formulation of marijuana/THC Does have a history of mono with a splenic infarct which did not require any surgical intervention. Otherwise denies medical and surgical history. He does not take any chronic medications. He has no known drug allergies. Full code. 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 He does not wish for any family to be contacted, reports that he has updated family himself. Admission Exam Per Admitting Provider General: A&Ox3. NAD. Cooperative. HEENT: Atraumatic, normocephalic. Vision/hearing intact. Pulm: Right thoravent present, on waterseal, no air leak. CTAB A&P. -wheezes, - rales, -rhonchi. Symmetrical chest rise. No increased work of breathing. No respiratory distress. Cardiac: RRR, -mrg. Radial pulses intact and symmetrical. Abdominal: Nontender, nondistended, soft. BS present. Principal Diagnosis Spontaneous pneumothorax Discharge Exam General:Alert and oriented, no acute distress, HEENT: Normocephalic, moist oral mucosa, Cardio: Regular rate and rhythm, no murmur, Resp:Lungs clear to auscultation b/l, no wheezes or rhonchi, Skin: Warm, pink, dry, Psych: Mood-affect congruence. Discharge Data Allergies Allergy/AdvReac Type Severity Reaction Status Date / Time No Known Allergies Allergy Verified 07/04/23 15:52 Consultations 07/04/23 17:57 ED Decision to Admit Stat 07/04/23 18:33 Consult Pulmonology Routine Ordered Studies 07/04/23 15:06 CT chest diagnostic w con Stat Hospital Course (1) Spontaneous pneumothorax: (2) Vapes nicotine containing substance: Plan Pt is a 23 yo male with a past medical history of vaping who presented to the hospital on 07/04 for spontaneous pneumothorax. #Spontaneous pneumothorax - Right-sided pneumothorax on CXR, s/p thoravent, has improved on serial xrays - oxygen sat has been 97% or greater on room air, vitals stable throughout admission Vape use several times daily several times a week - Pulm consulted, removed tube today and ok to discharge - pt counseled by pulm on importance of smoking cessation, limited lifting, and avoiding airplanes or diving for next 6 weeks Total Time Total Time Spent Total Time Spent (In Minutes): As per attending attestation Discharge Plan Discharge Items Patient Disposition: Home - Self-Care Reason For Visit: PSP Discharge Diagnosis: Spontaneous pneumothorax Activity: Per Instructions section Non-emergency contact: Primary Care Provider Call non-emergency contact if: you have any medication questions and your pain is not controlled Follow-up/Referrals: Robe Wu MD [Primary Care Provider] - Diet: Regular Addtl Attending Provider Instructions: You were admitted for spontaneous pneumothorax (collapsed lung). You were treated with a chest tube and serial chest x-rays showed progressive resolution of the pneumothorax. Additionally, your symptoms have improved, and we feel it is safe for you to return home at this point. Recommendations for the next 6 weeks include no lifting over 5 lbs and avoiding changes in barometric pressure as noted with activities such as snorkeling, scuba diving, or boarding an airplane. It is also important to avoid tobacco smoke and discontinue smoking or vaping. Medications: Your medication list has been reviewed and reconciled upon discharge to ensure accuracy and continuity of care. An updated list of all your medications is included with your hospital discharge paperwork. Please review this list closely, and make note of any changes. You can use [id number] tylenol or ibuprofen as needed for pain control. If you have any issues filling these prescriptions, please call [phone] and ask to leave a message for Dr. Gomez. Take your medications as instructed; do not skip a dose of your medicines. Make sure all of your doctors know every medicine you are taking (including [id number] medicines, vitamins, and supplements). Call your primary care provider before taking any new medicines (including over- the-counter medicines, vitamins, and supplements), because some of these may interact with your current medications, or may make your symptoms worse. Tell your primary care provider if you cannot afford your medications. Activity: You can do normal everyday activities as your body allows. Take rest breaks if you feel tired. Do not overexert. Stop activity if you have pain, shortness of breath or feel dizzy. Follow-up appointments: Make an appointment with your primary care physician within one week of discharge. A copy of this summary will be sent to them. Every time you see your primary care physician, or any other doctor, bring your medication list, a list of questions, and your recent weights. CONTACT YOUR PRIMARY CARE PROVIDER if you experience any of the following: Shortness of breath or difficulty breathing Swelling of your feet, ankles, hands or abdomen Feeling tired with normal activity or experiencing dizziness or fainting Difficulty following your treatment plan, or difficulty taking medications CALL 911 OR GO TO THE EMERGENCY DEPARTMENT if you experience any of the following: Severe abdominal pain or nausea/vomiting Severe chest pain, or chest pain that radiates (moves) to your jaw or arm Sudden, severe shortness of breath or difficulty breathing Thank you for allowing us to participate in your care. Pending Studies at Discharge: No Stand-Alone Forms: My [facility], Smoking Cessation Medications and DC Order Prescriptions: Continued acetaminophen [Tylenol Extra Strength] 500 mg Tablet 1,000 mg PO DIRECTED PRN (Reason: PAIN/FEVER) Discharge Orders: Discharge Order (Routine); Ordered 07/05/23 Ordered By: Arely Gomez Admission Data Admit Date/Time: 07/04/23 18:13 Attending Provider: Ildefonso Goel Admit Provider: Demetrio Grijalva Primary Care Provider: Robe Wu Other Providers: Demetrio Grijalva ; Lalo Jennings Supervising Physician Co-Signing Physician Notes Attending attestation Pt seen and examined in concert with Dr. Gomez. In agreement with the documented findings as noted in the resident documentation with any exceptions or additions as noted here. Resting in bed with significantly improved chest discomfort in the setting of chest tube. On examination, S1/S2 nl RRR no MCG. CTAB. Abd NT/ND BS+ve. Spontaneous pneumothorax s/p chest tube - repeat CXR with significant improvement, tube removed by pulmonology. Agree w/ dispo as noted with precautions re: worsening/changing and new symptoms Vaping - encourage cessation Else see resident documentation as noted. Total attending physician time spent with this patient's care on the day of discharge: 35 minutes. Resident Activity Tracking Resident Involvement: Resident Care Provided Care Provided: Adult Hospital Medicine
--- NOTE | 2023-07-05 15:33 | Procedure Note ---
Procedure Note Date of Service July 05, 2023 Note Thoravent inspected and appeared intact. Dressing was taken down. Thoravent removed upon exhalation with patient participation. Catheter observed to be fully intact. 4x4s placed over incision site and taped down. Pt tolerated procedure well. Ok to d/c home. Quick dressing dry overnight and ok to remove tomorrow evening. Needs repeat cxr in 2 weeks via pcp office. Parents and patient in agreement with plan. Primary team and nurse updated. Coding CPT Codes Pulmonary/Thoracic - Pulmonary and Thoracic: 45890 Remove lung catheter ([id number]) [facility] Procedure Codes (Charges) Pulmonary/Thoracic Procedure 1: Pulmonary and Thoracic: 53930 Remove lung catheter
== END 2023-07-05 17:13 | disposition home or self-care (01) | DRG 201 ==
LOC: ED 13:10 → SUATTDRO 18:13 → 2E 18:13